=== PATIENT | female | born 1985 | race Caucasian/White ===

== ENCOUNTER → 2017-05-08 10:25 | Outpatient (CLI) | payer MEDICAID, SELFPAY ==
[2017-05-15 06:19] LABS: DIA MoM 0.69 (.); DIA Value 118.85 pg/mL (.); DSR (Second Trimester) 1 IN 10000 (.); Gest. Age on Collection Date 17.4 WEEKS (.); Insulin Dep Diabetes No (.); Maternal Age At EDD 31.3 YEARS (.); OSBR Risk 1 IN 10000 (.); Results Report (.); hCG MoM 0.35 (.); hCG Value 10491 mIU/mL (.); uE3 MoM 1.03 (.)
[2017-05-15 12:14] LABS: Gestat. Age Based On EDD (.)
== END ==
PROVIDERS: PCP Nurse Practitioner Family; Visit Provider Nurse Practitioner Obstetrics & Gynecology
DX: Z34.90 Encounter for supervision of normal pregnancy, unspecified, unspecified trimester (principal)
CPT/HCPCS: 36415; 82106

== ENCOUNTER → 2017-05-27 12:49 | Outpatient (CLI) | payer MEDICAID, SELFPAY ==
--- NOTE | 2017-05-27 12:52 | US_ITS ---
US OB /maternal detail: INDICATION: ITS.REASON: US OB COMPLETE ANATOMY SCAN 20wk ORDERING PHYSICIAN: Ever Ragland MD PATIENT AGE: 31 years TECHNIQUE: ultrasound transabdominal scanning. COMPARISON: No previous relevant studies. FINDINGS: Single viable intrauterine gestation. cephalic position. Placenta: posterior placenta grade 1. There is average amount fluid. The cervix appears satisfactory. Closed and measuring 4 cm in length. Complete survey performed and was unremarkable on the submitted images as in PACS. No discrete anomalies identified on survey imaging by technologist. Active fetus. Three-vessel cord with satisfactory umbilical cord insertion. 4- chamber heart noted. Survey of brain & ventricles. Face and neck survey unremarkable. Diaphragm and chest views unremarkable. Abdomen: Both kidneys noted and unremarkable. Stomach noted and satisfactory. Spine: Survey of the spine satisfactory with no anomalies identified nor imaged. Both arms and legs noted. Amniotic Fluid: Adequate. Maternal adnexa: No significant findings. Measurements: Average ultrasound age 20w3d. Gestational Age 20w1d. Estimated due date by ultrasound age 0710/11/2017. Estimated weight 365 grams. This is 72nd percentile based on last menstrual period BPD = 19w6d OFD = 21w1d HC = 20w0d AC = 21w2d FL = 20w2d Heart Rate = 150 bpm Cerebellum = 20w4d Humerus = 19w6d HC/AC is 1.08 (1.09-1.26). CI is 73% (70-86%). FL/BPD is 71%. FL/AC is 20%. IMPRESSION: Live intrauterine gestation which is in the cephalic presentation with an average ultrasound age of 20 weeks and 3 days with an estimated due date of 10/11/2017. No obvious anomalies. Please see above for detail.
== END ==
PROVIDERS: Family Provider Nurse Practitioner Obstetrics & Gynecology; PCP Nurse Practitioner Family; Visit Provider Nurse Practitioner Obstetrics & Gynecology
DX: Z36.0 Encounter for antenatal screening for chromosomal anomalies (principal)
CPT/HCPCS: 76811

== ENCOUNTER → 2017-09-09 17:13 | Outpatient (REF) | payer MEDICAID, SELFPAY | LOC: LAB 17:13 | PROVIDERS: Visit Provider Nurse Practitioner Obstetrics & Gynecology | DX: Z34.90 Encounter for supervision of normal pregnancy, unspecified, unspecified trimester (principal) | CPT/HCPCS: 86403 ==

== ENCOUNTER 2017-10-08 09:41 | Inpatient (IN) ==
[2017-10-08 10:44] LABS: Basophils % 0.2 % (0.1-2.0); Eosinophils # 0.1 K/mm3 (0.0-0.4); Eosinophils % 0.8 % (0.1-12.0); Hematocrit 42.3 % (37.0-47.0); Hemoglobin 13.4 g/dL (12.2-16.2); Lymphocytes # 1.4 K/mm3 (0.7-4.5); Lymphocytes % 17.7 K/mm3 (10-50); Mean Corpuscular HGB Conc 31.7 g/dL (31.8-35.4); Mean Corpuscular Hemoglobin 29.4 pg (27.0-31.2); Mean Corpuscular Volume 92.9 fl (81-99); Mean Platelet Volume 10.1 fl (7.4-10.4); Monocytes # 0.7 K/mm3 (0.1-1.0); Monocytes % 8.3 % (1.7-9.3); Neutrophils # 5.8 K/mm3 (1.8-7.8); Neutrophils % 73.1 % (37.0-80.0); Platelet Count 175 K/mm3 (142-424); Red Blood Count 4.56 M/mm3 (4.20-5.40); White Blood Count 7.9 K/mm3 (4.8-10.8)
[2017-10-08 11:38] LABS: Appearance,Urine CLEAR (Clear); Bilirubin,Urine Negative (Negative); Blood, Urine Negative (Negative); Color,Urine YELLOW (Yellow); Glucose,Urine (UA) Negative (Negative); Ketones,Urine Negative (Negative); Leukocyte Esterase,Urine Negative (Negative); Microscopic, Urine URINE MICROSCOPIC (MICROSCOPIC); Protein,Urine Negative (Negative); Urobilinogen,Urine 0.2 EU/dl (0.2)
[2017-10-08 12:00] LABS: Bacteria,Urine Trace /lpf
--- NOTE | 2017-10-08 13:04 | Operative Note ---
Date of procedure: 10/08/17 Pre-op Diagnosis:: Term , breech presentation, desire for sterilization Post-op Diagnosis:: Term , breech presentation and a desire for sterilization Procedure performed:: Primary lower segment transverse section and bilateral salpingectomy. Surgeon:: Ever Ragland MD Contour Sander(s):: Dr. Thurman STORAGE MANAGEMENT ARCHITECT:: Jakub Pino Anesthesia: spinal Estimated blood loss (mL): 600 Clinical Note:: She is a 32-year-old 4 para 2 aborta 1 who was 39 weeks gestational age. She was seen in my office yesterday and an ultrasound confirmed that she had a baby in the breech presentation. As result of that she was offered primary lower segment transverse section. Operative findings:: She delivered a liveborn child at 12:24 PM in the afternoon of October 08, 2017. The baby had Apgars of 9 at 1 and 9 at 5 minutes. Ovaries and tubes normal. He was in the anita breech presentation. Operative note:: She was taken to the operating room where spinal anesthesia was found be adequate. She was prepped and draped in normal sterile fashion in the supine position with a leftward tilt. A Yepez catheter was in the bladder. A Pfannenstiel skin incision was made with knife then carried through to the underlying layer of fascia with cautery. The fascia was opened in the midline with cautery and extended laterally using Mari scissors. Palisades clamps were applied to the superior aspect of the fascial incision which was tented up and the underlying rectus muscles dissected off using cautery. The Johnathan clamps were then applied to the inferior aspect of the fascial incision which in a similar fashion was tented up and the underlying rectus muscles dissected off using cautery. The rectus muscles were then in the midline, the peritoneum identified, and entered sharply with Metzenbaum scissors. This incision was then extended superiorly and inferiorly with cautery. We had good visualization of the bladder inferiorly. The bladder peritoneum was then opened in the midline and extended laterally using Metzenbaum scissors. A bladder flap was created digitally. The lower blade of the Néstor was inserted so as to push the bladder out of the way. Transverse incision was made through the uterine muscle to the amnion. This incision was then extended laterally using fingers traction. The amnion was entered sharply with knife. The infant's breech was then delivered atraumatically. This was followed by the after coming shoulders and the rest of the infant's head atraumatically. The oropharynx and nasopharynx were bulb suctioned. The was then handed off to Dr. Helton who assigned Apgars of 9 at 1 minute and 9 at 5 minutes. We then obtained cord blood as well as cord pH. Using gentle traction on the cord and countertraction on the fundus I was able to easily deliver the placenta intact. It had a normal three-vessel cord. An Amador retractor was then inserted into the abdominal cavity. The uterus was then cleared of clots and debris and exteriorized from the abdominal cavity. The uterine incision was then closed using running 0 Vicryl suture in a locked fashion. A second layer of the same suture was used to imbricate the first layer. The bladder peritoneum was then closed using running 2-0 Vicryl suture in a locked fashion. We then performed a bilateral salpingectomy by grasping the distal end of the tube and using cautery I cauterized along the mesosalpinx. The tube was then cut at the cornua with cautery. A similar performed on the patient's left side. The gutters and cul-de-sac were then cleared of clots and debris and the uterus was returned the abdominal cavity. Once again hemostasis was assured. We elected to place a small piece of Surgicel on the fundus of the uterus where there was a small abrasion as well as along the uterine incision. The Amador retractor was then removed. The peritoneum was grasped with Eri clamps and closed using running 2-0 Vicryl suture. The rectus muscles were then reapproximated using running 0 Vicryl suture. The fascia was closed using running #1 Vicryl suture. The subcutaneous tissues were then irrigated with warm water followed by closure Tressa's fascia using running 2-0 Monocryl suture. The skin was closed with edda. I then cleaned the incision with Hibiclens twice. Sterile dressings were applied. She tolerated the procedure well and was taken to the recovery room in excellent condition. All sponges instrument and needle counts were correct. Estimate a blood loss was approximately 600 mL. Condition: stable Disposition: PACU Specimens:: Bilateral fallopian tubes Complications:: None
--- NOTE | 2017-10-08 13:07 | Progress Note ---
[facility] Anesthesia Record Part II Discharge Time: 13:35 Destination: Obstetric PACU nurse assessment reviewed?: Yes Patient Condition:: Good Anesthesia Complications:: None
--- NOTE | 2017-10-08 13:07 | Progress Note ---
[facility] Anesthesia Record Part I Intake, IV Amount: 2,500 Estimated blood loss (mL): 600 Urine output (mL): 150 Blood Pressure: 93/63 SaO2: 97 Pulse Rate: 75 Respiratory Rate: 12 Temperature: 97 F Patient is:: Awake, Stable Stable to PACU at:: 13:05
--- NOTE | 2017-10-08 13:10 | Progress Note ---
[facility] Anesthesia Checklist - Structural Data Admitted From: Inpatient Planned Operative Procedure/s: c/section Consent for Planned Operative Procedure(s) Verified: Yes Verified Documents: Surgical Consent - Airway Assessment C-Spine Mobility Assessed: Yes TMJ Mobility Assessed: Yes Dentition: Good Dentition - Neurological Assessment Level of Consciousness: Awake, Alert, Appropriate - Anesthesia Plan Anesthesia Risk discussed: Yes Anesthesia Plan: Verified ASA Class: II Anesthesia Type: Spinal [facility] Anesthesia HX I have reviewed the patient's past medical history: Yes Medical History: Reports:: Renal Disease Denies:: Cancer, Diabetes Mellitus Type 1, Diabetes Mellitus Type 2, Hypertension, MRSA Other Surgeries: Yes: No Previous Surgery. No: Amputation: No Fractures: No *Family Hx:: No significant family history
[2017-10-09 07:13] LABS: Hematocrit 38.1 % (37.0-47.0); Hemoglobin 12.3 g/dL (12.2-16.2)
--- NOTE | 2017-10-09 08:17 | Progress Note ---
Internal Medicine - PN: Subj *Date: 10/09/17 *Time: 08:15 Interval history: She is doing very well this morning. She is eating and drinking and ambulating. She is breast-feeding. Her lochia is normal. Exam Vital signs and Labs for Last 24 Hours: Temp Pulse Resp BP Pulse Ox 97.7 F 82 16 115/67 99 10/09/17 04:00 10/09/17 04:00 10/09/17 04:00 10/09/17 04:00 10/08/17 13:35 Laboratory Results - last 24 hr 10/08/17 10:14: WBC 7.9, RBC 4.56, Hgb 13.4, Hct 42.3, MCV 92.9, MCH 29.4, MCHC 31.7 L, RDW 14.0, Plt Count 175, MPV 10.1, Neut % (Auto) 73.1, Lymph % (Auto) 17.7, [place] % (Auto) 8.3, Eos % (Auto) 0.8, Baso % (Auto) 0.2, Neut # (Auto) 5.8 , Lymph # (Auto) 1.4, [place] # (Auto) 0.7, Eos # (Auto) 0.1, Baso # (Auto) 0.0 10/08/17 10:14: Blood Type A Positive, Antibody Screen Negative 10/08/17 11:30: Urine Color Yellow, Urine Appearance Clear, Urine pH 8.0, Ur Specific [place] 1.010, Urine Protein Negative, Urine Glucose (UA) Negative, Urine Ketones Negative, Urine Blood Negative, Urine Nitrate Negative, Urine Bilirubin Negative, Urine Urobilinogen 0.2, Ur Leukocyte Esterase Negative, Urine RBC None, Urine WBC None, Ur Squamous Epith Cells 10-20, Urine Bacteria Trace 10/08/17 12:25: Cord ABG pH 7.41 10/09/17 06:32: Hgb 12.3, Hct 38.1 I & O for Last 24 hours: Intake & Output 10/06/17 10/07/17 10/08/17 10/09/17 11:59 11:59 11:59 11:59 Intake Total 2700 / 2700 Output Total 2750 / 2750 Balance -50 / -50 Weight 177 lb 6 oz - Constitutional no acute distress Assessment and Plan (1) Breech presentation Current visit: Yes Status: Acute Category: Medical Code(s): O32.1XX0 - Maternal care for breech presentation, not applicable or unspecified (2) Delivery by section for breech presentation Current visit: Yes Status: Acute Category: Medical Code(s): O32.1XX0 - Maternal care for breech presentation, not applicable or unspecified - Assessment and plan all Dx Assessment and Plan for all problems:: She continues to do well this morning. We will plan to send her home in 48 hours.
--- NOTE | 2017-10-09 10:40 | Pharmacy Consult Notes ---
[facility] Pharmacy VTE Monitoring - Patient Demographics Admission date: 10/08/17 Report Date: 10/09/17 Time: 10:40 Allergies/Adverse Reactions: Patient Allergies No Known Allergies Allergy (Verified 10/07/17 15:23) Height: 1.55 m Weight: 80.456 kg Patient Problems: Current Active Problems Breech presentation (Acute) Delivery by section for breech presentation (Acute) - VTE Risk Labs: VTE Related Lab Results Hgb 12.3 g/dL (12.2-16.2) 10/09/17 06:32 Hct 38.1 % (37.0-47.0) 10/09/17 06:32 Plt Count 175 K/mm3 (142-424) 10/08/17 10:14 - Prophylaxis VTE Prophylaxis Ordered?: Yes Types of VTE Prophylaxis: IPCS Knee High Location of Applied Device: Bilateral Lower Extremeties - VTE Diagnosis Confirmed Treatment or plan recommended: Continue Current Treatment
--- NOTE | 2017-10-10 11:02 | Progress Note ---
Internal Medicine - PN: Subj *Date: 10/10/17 *Time: 11:00 Interval history: She is doing well. Her pain is reasonably well controlled. She is breast- feeding. Her lochia is normal. Exam Vital signs and Labs for Last 24 Hours: Temp Pulse Resp BP Pulse Ox 98.0 F 90 18 126/68 99 10/10/17 08:00 10/10/17 08:00 10/10/17 08:00 10/10/17 08:00 10/10/17 08:00 I & O for Last 24 hours: Intake & Output 10/07/17 10/08/17 10/09/17 10/10/17 11:59 11:59 11:59 11:59 Intake Total 2700 / 2700 Output Total 2750 / 2750 Balance -50 / -50 Weight 177 lb 6 oz 177 lb 6 oz - Constitutional no acute distress Assessment and Plan (1) Breech presentation Current visit: Yes Status: Acute Category: Medical Code(s): O32.1XX0 - Maternal care for breech presentation, not applicable or unspecified (2) Delivery by section for breech presentation Current visit: Yes Status: Acute Category: Medical Code(s): O32.1XX0 - Maternal care for breech presentation, not applicable or unspecified - Assessment and plan all Dx Assessment and Plan for all problems:: She continues to do well. We will plan to send her home tomorrow.
--- NOTE | 2017-10-11 08:08 | Discharge Summary ---
General - General Admission date:: 10/08/17 Discharge date: 10/11/17 HPI HPI: She is a 32-year-old 4 now para 3 aborta 1 who was 39 weeks gestational age. She had a sound in my office that showed a baby in the anita breech presentation. As result of that she was offered primary lower segment transverse section. She also expressed desire for sterilization. Hospital Course Hospital Course: On 08/08/2017 she underwent a primary lower segment transverse section and bilateral salpingectomy. She has done well and has remained afebrile throughout her hospitalization. She is eating and drinking and ambulating. She is breast-feeding. She delivered a liveborn female child weighing 7 lbs. 5 oz. and she was 18-1/2 inches long. She is in the anita breech presentation. She had Apgars of 9 at 1 minute and 9 at 5 minutes She will be discharged home to follow-up with me in approximately 2 weeks time. She was given the usual instructions with respect to limiting her activity, driving and sexual activity. Objective Vital signs: Temp Pulse Resp BP Pulse Ox 98.0 F 90 18 126/68 99 10/10/17 08:00 10/10/17 08:00 10/10/17 08:00 10/10/17 08:00 10/10/17 08:00 no acute distress DS: Diagnosis - Discharge Diagnosis (1) Breech presentation Status: Acute (2) Delivery by section for breech presentation Status: Acute Discharge Plan - Patient Discharge Instructions ACTIVITY: No heavy lifting DIET: continue same diet - Follow up Plan Disposition: Home, Self-[facility] Medications: Home Medications Medication Instructions Recorded Confirmed Type 1 tab PO DAILY 04/01/17 10/09/17 History vitamin,calcium,rvxyojwb-gkjd-ysunj acid tablet Ferrous Sulfate 325 mg PO DAILY 07/26/17 10/08/17 History Prescriptions/Medication Reconciliation: Continue vitamin,calcium,ktbeksqz-eiqv-hkddg acid tablet 1 tab PO DAILY Ferrous Sulfate 325 mg PO DAILY
== END 2017-10-11 13:30 | disposition home or self-care (01) ==
LOC: OB 09:41
PROVIDERS: ADMIT Nurse Practitioner Obstetrics & Gynecology; ATTEND Nurse Practitioner Obstetrics & Gynecology

== ENCOUNTER → 2018-12-06 12:28 | Outpatient (CLI) | payer MEDICAID, SELFPAY ==
[2018-12-06 13:19] LABS: Basophils % 0.3 % (0.1-2.0); Eosinophils # 0.1 K/mm3 (0.0-0.4); Eosinophils % 1.1 % (0.1-12.0); Hematocrit 41.8 % (37.0-47.0); Lymphocytes # 1.8 K/mm3 (0.7-4.5); Lymphocytes % 26.3 % (10-50); Mean Corpuscular HGB Conc 33.4 g/dL (31.8-35.4); Mean Corpuscular Hemoglobin 29.5 pg (27.0-31.2); Mean Corpuscular Volume 88.3 fl (81-99); Mean Platelet Volume 7.9 fl (7.4-10.4); Monocytes # 0.4 K/mm3 (0.1-1.0); Monocytes % 5.4 % (1.7-9.3); Neutrophils # 4.5 K/mm3 (1.8-7.8); Neutrophils % 66.8 % (37.0-80.0); Platelet Count 244 K/mm3 (142-424); Red Blood Count 4.73 M/mm3 (4.20-5.40); Red Cell Distribution Width 12.8 % (11.5-17.5); White Blood Count 6.7 K/mm3 (4.8-10.8)
[2018-12-06 13:38] LABS: Alanine Aminotransferase 16 U/L (12-78); Albumin Level 4.2 gm/dL (3.4-5.0); Albumin/Globulin Ratio 1.4 (1.1-1.8); Alkaline Phosphatase 59 U/L (46-116); Anion Gap 13.5 mEq/L (5-15); Aspartate Amino Transferase 13 U/L (15-37); Bilirubin,Total 1.1 mg/dL (0.2-1.0); Blood Urea Nitrogen 11 mg/dL (7-18); Calcium 8.8 mg/dL (8.5-10.1); Carbon Dioxide 26 mmol/L (21.0-32.0); Chloride 103 mmol/L (98-107); Chol/HDL Ratio 2.6 (1-3.5); Cholesterol 138 mg/dL (140-200); Creatinine,Serum 0.71 mg/dL (0.55-1.02); Estimated Glomerular Filt Rate 95 ml/min (>60); GFR (African American) 115 ML/MIN (>60); Glucose 104 mg/dL (74-106); HDL Cholesterol 54 mg/dL (29-89); LDL Cholesterol 79 mg/dL (0-130); Potassium 3.5 mmoL/L (3.5-5.1); Sodium 139 mmol/L (136-145); T4 (Thyroxine) 9.7 ug/dl (4.7-13.3); Thyroid Stimulating Hormone 0.96 uIU/ml (0.358-3.740); Total Protein,Serum 7.2 gm/dL (6.4-8.2); Triglycerides 25 mg/dL (30-200); VLDL Cholesterol 5 mg/dL (0-40)
== END ==
PROVIDERS: Visit Provider Nurse Practitioner Family
DX: Z00.00 Encounter for general adult medical examination without abnormal findings (principal); E66.9 Obesity, unspecified
CPT/HCPCS: 36415; 80053; 80061; 84436; 84443; 85025

== ENCOUNTER → 2019-01-19 15:39 | Outpatient (POV) | payer MEDICAID, SELFPAY | DX: Z00.00 Encounter for general adult medical examination without abnormal findings (principal) ==

== ENCOUNTER → 2020-05-22 08:32 | Outpatient (CLI) | payer OTHER, SELFPAY ==
--- NOTE | 2020-05-22 08:37 | XR_ITS ---
PROCEDURE: XR WRIST RT MIN 3V CLINICAL INDICATION: right wrist pain/ CTS COMPARISON: No exams were available for comparison FINDINGS: No fracture or dislocation. No lytic or blastic change. There is normal mineralization. The joint spaces are well-preserved. No significant degenerative/arthritic changes. No erosive changes evident. Other findings:None. IMPRESSION: No acute findings. Dictated by: Herb Quezada MD 05/22/2020 16:56 Herb Quezada MD in [place] 05/22/2020 16:56
== END ==
PROVIDERS: PCP Nurse Practitioner Family; Visit Provider Orthopaedic Surgery
DX: M25.531 Pain in right wrist (principal)
CPT/HCPCS: 73110

== ENCOUNTER 2020-06-13 12:37 | Emergency (ER) | payer OTHER, SELFPAY ==
[2020-06-13 13:13] VITALS: BP 124/85; PULSE 89; RESP 14; TEMP 36.7; O2SAT 99; BMI 29.8
--- NOTE | 2020-06-13 13:22 | HMH.EDUTC ---
[facility] [place] Disposition Clinical Impression: Exposure to COVID-19 virus Disposition: Home, Self-Care Condition on Discharge: Good Instructions: Preventing the Spread of Coronavirus Discharge Instructions Additional Instructions: Drink plenty of fluids. Take tylenol for pain or fever. Return if you begin to have difficulty breathing. Follow up with your regular doctor. GO TO THE ER FOR ANY WORSENING SYMPTOMS Referrals: Nikole Kilgore APRN [Primary Care Provider] - Time of Disposition: 13:23 Medical Decision Making - Medical Records Medical records reviewed: No: I reviewed the patient's medical records. - Patrick Inquiry Pt receiving controlled substance: No Vital Signs: 06/13/20 13:13 06/13/20 13:32 Temperature 98.1 F 98 F Temperature Source Oral Pulse Rate 85 Pulse Rate [Right] 89 Respiratory Rate 14 14 Blood Pressure 119/81 Blood Pressure [Right Arm] 124/85 Blood Pressure Mean [Right Arm] 98 Blood Pressure Source [Right Arm] Automatic Cuff Blood Pressure Position [Right Arm] Sitting 02 Sat by Pulse Oximetry 99 [facility] [place] HPI - General Stated complaint: covid test Time Seen by Provider: 06/13/20 13:22 Mode of Arrival: Ambulatory Source of Information: Patient Limitations: No Limitations HEENT Symptoms (Recalled from RN notes): No Resp Symptoms (Recalled from RN notes): No Skin Symptoms (Recalled from RN notes): No MS Symptoms (Recalled from RN notes): No Functional Status (Recalled from RN notes): na - History of Present Illness Provider Complaint: She is here for a covid-19 test. She has been exposed but she does not have symptoms yet. - Related Data Previous Rx's Medication Instructions Recorded phentermine 37.5 mg tablet 37.5 mg PO DAILY #30 tab 05/25/20 Allergies Allergy/AdvReac Type Severity Reaction Status Date / Time No Known Allergies Allergy Verified 06/13/20 13:10 - Worker's Comp Is this a Worker's Comp case?: No [facility] History - Hepatitis A Screen Drug use history?: No High risk sexual behaviors?: No History of sexually transmitted infection?: No Currently employed?: No Childcare worker?: No Do you have indoor plumbing?: Yes Do you have electricity?: Yes Attestation statement:: This patient has been screened for Hepatitis A risk factors. I have reviewed the patient's past medical history: Yes Medical History: Reports:: Renal Disease Denies:: Cancer, Diabetes Mellitus Type 1, Diabetes Mellitus Type 2, Hypertension, Internal Pacemaker, MRSA, Seizures Other Medical History: Reports: Other. Denies: Blood Transfusion Reaction Comment: Hx of Abn pap, nausea and vomiting, diarrhea and painful intercourse Other Surgeries: Yes: No Previous Surgery. No: , Pacemaker Amputation: No Fractures: No - Social History Smoking Status: Unknown if ever smoked Alcohol Intake: never Substance Use Type: denies use Occupational Status: employed Housing: house Household Members: significant other, children Family Hx:: No significant family history NAVIGATION OFFICER history: Spontaneous , Additional NAVIGATION OFFICER History ROS Obtained: Yes All systems reviewed & no additional complaints - Constitutional Constitutional: Reports system reviewed and no additional complaints, except as docu - Eyes Eyes: Reports system reviewed and no additional complaints, except as docu - ENT Ears, Nose, Mouth, and Throat: Reports system reviewed and no additional complaints, except as docu - Cardiovascular Cardiovascular: Reports system reviewed and no additional complaints, except as docu - Respiratory Respiratory: Reports system reviewed and no additional complaints, except as docu - Gastrointestinal Gastrointestingal: Reports: system reviewed and no additional complaints, except as docu Physical Exam - General General appearance: alert, in no apparent distress - Head Head exam: atraumatic, normocephalic, normal inspection - Eye Eye exam: Present: normal
[2020-06-13 13:32] VITALS: BP 119/81; PULSE 85; RESP 14; TEMP 36.6
== END 2020-06-13 13:32 | disposition home or self-care (01) ==
PROVIDERS: Emergency Provider Nurse Practitioner Family; PCP Nurse Practitioner Family
DX: Z20.822 Contact with and (suspected) exposure to COVID-19 (principal)
CPT/HCPCS: 99202; G0463; U0003

== ENCOUNTER → 2021-02-25 17:42 | Outpatient (CLI) | payer OTHER, SELFPAY ==
[2021-02-25 19:18] LABS: Basophils % 0.5 % (0.1-2.0); Eosinophils # 0.1 K/mm3 (0.0-0.4); Eosinophils % 1.3 % (0.1-12.0); Hemoglobin 13.6 g/dL (12.2-16.2); Lymphocytes # 1.8 K/mm3 (0.7-4.5); Lymphocytes % 27.2 % (10-50); Mean Corpuscular HGB Conc 33.1 g/dL (31.8-35.4); Mean Corpuscular Hemoglobin 30.7 pg (27.0-31.2); Mean Corpuscular Volume 92.8 fl (81-99); Mean Platelet Volume 9.8 fl (7.4-10.4); Monocytes # 0.3 K/mm3 (0.1-1.0); Monocytes % 5.1 % (1.7-9.3); Neutrophils # 4.4 K/mm3 (1.8-7.8); Neutrophils % 65.9 % (37.0-80.0); Platelet Count 274 K/mm3 (142-424); Red Blood Count 4.42 M/mm3 (4.20-5.40); Red Cell Distribution Width 13.3 % (11.5-17.5); White Blood Count 6.7 K/mm3 (4.8-10.8)
[2021-02-25 19:35] LABS: Alanine Aminotransferase 4 U/L (12-78); Albumin Level 4.4 g/dl (3.5-5.0); Albumin/Globulin Ratio 1.6 (1.1-1.8); Alkaline Phosphatase 43 U/L (38-126); Anion Gap 11.1 mEq/L (5-15); Aspartate Amino Transferase 21 U/L (14-36); Bilirubin,Total 0.6 mg/dl (0.2-1.3); Blood Urea Nitrogen 11 mg/dl (7-17); Calcium 9.2 mg/dl (8.4-10.2); Carbon Dioxide 27 mmol/L (22.0-30.0); Chloride 104 mmol/L (98-107); Chol/HDL Ratio 3.2 (1-3.5); Cholesterol 175 mg/dl (140-200); Estimated Glomerular Filt Rate 114 ml/min (>60); GFR (African American) 138 ML/MIN (>60); Globulin 2.8 g/dL (1.3-3.2); Glucose 85 mg/dl (74-100); HDL Cholesterol 54 mg/dl (40-60); Potassium 4.1 mmoL/L (3.5-5.1); Sodium 138 mmol/L (136-145); Total Protein,Serum 7.2 g/dl (6.3-8.2); Triglycerides 86 mg/dl (30-150); VLDL Cholesterol 17 mg/dL (0-40)
[2021-02-25 19:47] LABS: Direct LDL Cholesterol 93.23 mg/dL (100-129)
[2021-02-25 19:53] LABS: T4 (Thyroxine) 8.3 ug/dl (5.53-11.0)
[2021-02-25 20:22] LABS: Hemoglobin A1C 4.8 % (4.0-6.0)
[2021-02-25 20:25] LABS: Vitamin B12 333 pg/mL (239-931)
[2021-02-25 22:13] LABS: Thyroid Stimulating Hormone 0.92 uIU/mL (0.465-4.68)
== END ==
PROVIDERS: Visit Provider Nurse Practitioner Family
DX: E66.9 Obesity, unspecified (principal); R53.83 Other fatigue
CPT/HCPCS: 80053; 80061; 82306; 82607; 83036; 84436; 84443; 85025